=== PATIENT | female | born 1970 | race Caucasian/White ===

== ENCOUNTER 2019-10-16 15:00 | Observation (INO) ==
[2019-10-16] MEDS ORDERED: Isovue-370 500 ML BOTTLE IVP ONE ×2 (15:35→17:08)
[2019-10-16 15:53] LABS: Basophils % 0.6 %; Eosinophils # 0.2 K/mcL (0.0-0.6); Eosinophils % 2.9 %; Hematocrit 44.3 % (35.3-44.9); Hemoglobin 14.1 g/dL (11.5-15.4); Immature Granulocytes % 0.3 % (0-4); Lymphocytes # 1.3 K/mcL (0.6-4.6); Lymphocytes % 17.5 %; Mean Corpuscular HGB Conc 31.8 g/dL (31.6-35.5); Mean Corpuscular Hemoglobin 26.3 pg (28.0-33.3); Mean Corpuscular Volume 82.5 fL (83.0-100.0); Mean Platelet Volume 10.5 fL (9.4-12.4); Monocytes # 0.5 K/mcL (0.0-1.3); Monocytes % 6.7 %; Neutrophils # 5.1 K/mcL (1.6-8.9); Platelet Count 325 K/mcL (140-400); Red Blood Count 5.37 M/mcL (3.82-4.97); Red Cell Distribution Width 14.6 % (11.5-14.5); White Blood Count 7.1 K/mcL (4.3-11.1)
[2019-10-16 16:05] LABS: Prothrombin Time 11.4 Seconds (9.4-12.1)
[2019-10-16 16:08] LABS: Activated Partial Thrombo Time 29.9 Seconds (26.0-36.0)
[2019-10-16 16:17] LABS: Alanine Aminotransferase 118 Units/L (7-52); Albumin 4.3 g/dL (3.5-5.7); Albumin/Globulin Ratio 1.4 (1.1-2.2); Alkaline Phosphatase 107 Units/L (34-104); Aspartate Amino Transferase 80 Units/L (13-39); BUN/Creatinine Ratio 16 (6-26); Bilirubin,Direct 0.2 mg/dL (0.0-0.2); Bilirubin,Indirect 0.4 mg/dL (0.0-1.0); Bilirubin,Total 0.6 mg/dL (0.3-1.0); Blood Urea Nitrogen 13 mg/dL (6-20); Carbon Dioxide 26 mEq/L (23-29); Chloride 100 mEq/L (98-107); Globulin 3.1 g/dL (2.4-3.5); Glucose 98 mg/dL (70-105); Osmolality,Calculated 284 (280-300); Potassium 3.9 mEq/L (3.5-5.1); Sodium 137 mEq/L (136-145); Total Protein 7.4 g/dL (6.4-8.9); Troponin I < 0.03 ng/mL (< 0.04); eGFR For African Americans > 60 (> 60); eGFR For Non-African Americans > 60 (> 60)
[2019-10-16 18:25] LABS: Bilirubin,Urine Negative (Negative); Blood,Urine Negative (Negative); Clarity,Urine Clear (Clear); Color,Urine Light-Yellow (Yellow); Glucose,Urine (UA) Normal (Normal); Ketones,Urine Negative (Negative); Leukocyte Esterase,Urine Negative (Negative); Nitrite,Urine Negative (Negative); PH,Urine 7.5 pH Units (5.0-8.0); Protein,Urine Trace mg/dL (Neg-Trace); Specific Gravity,Urine > 1.030 (1.010-1.025); Urobilinogen,Urine Normal (Normal)
[2019-10-16] MEDS ORDERED: cefTRIAXone 1,000 MG in 0.9 % Sodium Chloride Mini Bag 100 ML IVPB ONE (20:22)
[2019-10-16] MEDS ORDERED: cefTRIAXone 1,000 MG in Water for inj. (sterile) 10 ML IVP ONE (21:10)
[2019-10-16] MEDS ORDERED: 0.9 % Sodium Chloride 250 ML ONE (21:11)
[2019-10-16] MEDS: Azithromycin 500 MG in 0.9 % Sodium Chloride 250 ML IVPB ONE ×2 (21:24→21:28)
[2019-10-16 23:13] LABS: Adenovirus Not Detected (Not Detect); Bordetella Pertussis Not Detected (Not Detect); Chlamydophila pneumoniae Not Detected (Not Detect); Coronavirus 229E Not Detected (Not Detect); Coronavirus HKU1 Not Detected (Not Detect); Coronavirus NL63 Not Detected (Not Detect); Coronavirus OC43 Not Detected (Not Detect); Human Metapneumovirus Not Detected (Not Detect); Human Rhinovirus/Enterovirus Not Detected (Not Detect); Influenza A Subtype 2009 H1 Not Detected (Not Detect); Influenza B Not Detected (Not Detect); Mycoplasma pneumoniae Not Detected (Not Detect); Parainfluenza Virus 1 Not Detected (Not Detect); Parainfluenza Virus 2 Not Detected (Not Detect); Parainfluenza Virus 3 Not Detected (Not Detect); Parainfluenza Virus 4 Not Detected (Not Detect); Respiratory Syncytial Virus Not Detected (Not Detect)
[2019-10-16 23:15] LABS: SARS-CoV-2 Not Detected (Not Detect)
[2019-10-16] MEDS ORDERED: Naloxone 0.4 MG/ML INJ IVP PRN (23:53)
[2019-10-16] MEDS ORDERED: Ondansetron 4 MG/2 ML VIAL IVP PRN (23:53)
[2019-10-17] MEDS ORDERED: Acetaminophen 325 MG TABLET PO PRN (00:43)
[2019-10-17] MEDS ORDERED: *HR* Promethazine 25 MG/ML VIAL IVP PRN (00:43)
[2019-10-17] MEDS ORDERED: Ketorolac 15 MG/ML VIAL IVP PRN (00:43)
[2019-10-17] MEDS: 0.9 % Sodium Chloride 1,000 ML IVC SCH ×2 (01:56→15:35)
[2019-10-17] MEDS: Benzonatate 100 MG CAPSULE PO PRN ×3 (02:01→20:55)
[2019-10-17 06:02] LABS: Basophils # 0.1 K/mcL (0.0-0.2); Basophils % 0.8 %; Eosinophils # 0.3 K/mcL (0.0-0.6); Eosinophils % 4.1 %; Hematocrit 40.2 % (35.3-44.9); Hemoglobin 12.9 g/dL (11.5-15.4); Immature Granulocytes % 0.3 % (0-4); Lymphocytes # 2.1 K/mcL (0.6-4.6); Lymphocytes % 32.3 %; Mean Corpuscular HGB Conc 32.1 g/dL (31.6-35.5); Mean Corpuscular Hemoglobin 26.9 pg (28.0-33.3); Mean Corpuscular Volume 83.9 fL (83.0-100.0); Mean Platelet Volume 10.7 fL (9.4-12.4); Monocytes # 0.5 K/mcL (0.0-1.3); Monocytes % 7.9 %; Neutrophils # 3.6 K/mcL (1.6-8.9); Platelet Count 288 K/mcL (140-400); Red Blood Count 4.79 M/mcL (3.82-4.97); Red Cell Distribution Width 14.6 % (11.5-14.5); Segmented Neutrophils % 54.6 %; White Blood Count 6.6 K/mcL (4.3-11.1)
[2019-10-17 06:52] LABS: Hepatitis B Surface Antigen Nonreactive (Nonreactive)
[2019-10-17 07:21] LABS: Hepatitis B Core IgM Nonreactive (Nonreactive)
[2019-10-17 07:22] LABS: Hepatitis C Virus Antibody Nonreactive (Nonreactive)
[2019-10-17 07:23] LABS: Hepatitis A Antibody IgM Nonreactive (Nonreactive)
[2019-10-17] MEDS: cefTRIAXone 1,000 MG in Water for inj. (sterile) 10 ML IVP SCH (08:28)
[2019-10-17] MEDS ORDERED: Azithromycin 500 MG in 0.9 % Sodium Chloride 250 ML IVPB SCH (21:00)
[2019-10-18 05:24] LABS: Albumin 3.6 g/dL (3.5-5.7); Albumin/Globulin Ratio 1.6 (1.1-2.2); Bilirubin,Direct 0.1 mg/dL (0.0-0.2); Bilirubin,Indirect 0.2 mg/dL (0.0-1.0); Bilirubin,Total 0.3 mg/dL (0.3-1.0); Globulin 2.3 g/dL (2.4-3.5); Total Protein 5.9 g/dL (6.4-8.9)
[2019-10-18] MEDS: cefTRIAXone 1,000 MG in Water for inj. (sterile) 10 ML IVP SCH (07:34)
[2019-10-18 10:59] VITALS: BP 128/81
== END 2019-10-18 11:57 | disposition home or self-care (01) ==
LOC: EMEROOARM 15:00 → 3BNU 15:00
PROVIDERS: ADMIT Family Medicine; ATTEND Family Medicine